=== PATIENT | male | born 1975 | race Two or more races ===

== ENCOUNTER 2019-12-02 22:23 | Emergency (ER) | payer SELFPAY ==
[~2019-12-02] VITALS: Ht 182.9 cm; Wt 88.5 kg
[2019-12-02] MEDS ORDERED: SODIUM CHLORIDE 0.9% 1,000 ML IV ONE (23:15)
[2019-12-02] MEDS ORDERED: MORPHINE SULFATE 4 MG/ML SYR/VIAL IV ONE (23:45)
[2019-12-02] MEDS ORDERED: ONDANSETRON HCL 4 MG/2 ML VIAL IV ONE (23:45)
[2019-12-02 23:54] LABS: Basophils # (auto) 0.1 10 ^3/uL (0-0.2); Basophils % (auto) 1.3 % (0.0-2.0); Eosinophils # (auto) 0 10 ^3/uL (0-0.8); Eosinophils % (auto) 0.3 % (0.0-7.0); Hematocrit 24.2 % (41.0-53.0); Lymphocytes # (auto) 1.6 10 ^3/uL (0.4-5.4); Lymphocytes % (auto) 26.6 % (10.0-50.0); Mean Corpuscular Hemoglobin 15.7 pg (28.0-32.0); Mean Corpuscular Hgb Conc. 27.5 g/dL (32.0-36.0); Mean Corpuscular Volume 57.1 fL (80.0-100.0); Monocytes # (auto) 0.1 10 ^3/uL (0-1.3); Monocytes % (auto) 1.8 % (0.0-12.0); Neutrophils # (auto) 4.1 10 ^3/uL (1.6-8.6); Nucleated Red Blood Cells % 0.1 %; Platelet Count (auto) 452 10^3/uL (140-450); Red Blood Cells 4.24 10^6/uL (4.5-5.90); Red Cell Distribution Width 19.8 % (11.8-14.3); White Blood Cell 5.9 10^3/uL (4.4-10.8)
[2019-12-03 00:04] LABS: Hemoglobin 6.7 g/dL (13.5-17.5)
[2019-12-03 00:09] LABS: BUN/Creatinine Ratio 12.6; Calcium 9.1 mg/dL (8.5-10.1); Potassium 3.8 mmol/L (3.5-5.1)
[2019-12-03 00:12] LABS: Bilirubin, Total 0.5 mg/dL (0.2-1.0); Total Protein 7.4 g/dL (6.4-8.2)
[2019-12-03] MEDS ORDERED: HYDROmorphone HCL 2 MG/ML VL IV ONE ×2 (00:45→01:45)
[2019-12-03] MEDS ORDERED: metroNIDAZOLE 500MG/100ML 100 ML IV ONE (00:45)
[2019-12-03] MEDS ORDERED: PIPERACILLIN-TAZOB 3.375GM 100 ML IV ONE (00:45)
[2019-12-03 01:30] VITALS: BP 141/72
[2019-12-03 01:45] VITALS: BP 145/78
[2019-12-03 01:48] VITALS: BP 145/78
== END 2019-12-03 02:10 | disposition short-term general hospital (02) ==
LOC: ER 22:28
DX: K63.1 Perforation of intestine (nontraumatic) (principal); D64.9 Anemia, unspecified
CPT/HCPCS: 36415; 36430; 74176; 80053; 82150; 83690; 85025; 86850; 86900; 86901; 86920; 93005; 96365; 96375; 96376; 99285; J2270; J2405; J7030; P9016; J2543; J3490